=== PATIENT | male | born 1940 | race Caucasian/White ===

== ENCOUNTER 2019-07-14 11:30 | Observation (INO) ==
[2019-07-14] MEDS ORDERED: AMPICILLIN/SULBACTAM 3,000 MG in SODIUM CHLORIDE 0.9% 100 ML IV STA (12:43)
[2019-07-14] MEDS ORDERED: LIDOCAINE 1%/EPI INJ 20 ML VIAL ONE (13:16)
[2019-07-14] MEDS ORDERED: TISSUE ADHESIVE 1 EACH APPLICATOR TOP ONE (13:16)
[2019-07-14] MEDS ORDERED: BUPIVACAINE MPF 0.25% 30 ML VIAL ONE (13:17)
[2019-07-14 13:19] LABS: Basophils % 0.3 % (0.0-0.8); Hematocrit 45.3 VOL% (42.0-52.0); Hemoglobin 15.2 GM/DL (14.0-18.0); Immature Granulocytes % 0.5 %; Immature Granulocytes Absolute 0.06 #; Lymphocytes # 0.5 10*3/uL (1.4-4.0); Lymphocytes % 4.9 % (21.2-54.2); Mean Corpuscular HGB Conc 33.6 GM/DL (32-36); Mean Corpuscular Volume 86.6 FL (87-102); Mean Platelet Volume 9.8 FL (9.6-12.0); Monocytes % 7.4 % (1.7-12.7); Neutrophils % 86.9 % (38.7-73.9); Platelet Count 180 T/CUMM (130-400); Red Blood Count 5.23 MC/CUMM (3.8-5.5); Red Cell Distribution Width 13.2 % (9.3-17.3)
[2019-07-14] MEDS ORDERED: ONDANSETRON 4 MG/2 ML VIAL IV STA (13:23)
[2019-07-14] MEDS ORDERED: HYDROmorphone 2 MG/1 ML VIAL IV STA (13:23)
[2019-07-14] MEDS ORDERED: ONDANSETRON 4 MG/2 ML VIAL ONE ×2 (13:24→15:42)
[2019-07-14 13:26] LABS: INR 1.1; PT Patient Result 11.7 SECS (9.8-11.9); Partial Thromboplastin Time 30.3 SECS (23.9-33.8)
[2019-07-14 15:03] LABS: Lymphocytes 6 % (20-55); Platelet Estimate Normal; Segmented Neutrophils 91 % (50-85); Total Cells Counted 100
[2019-07-14] MEDS ORDERED: MORPHINE 4 MG/1 ML VIAL IV PRN (15:35)
[2019-07-14] MEDS ORDERED: ONDANSETRON 4 MG/2 ML VIAL IV PRN (15:35)
[2019-07-14] MEDS ORDERED: LIDOCAINE 2% 5 ML VIAL ONE (15:41)
[2019-07-14] MEDS ORDERED: SEVOFLURANE 1 UNIT/15 MINUTE INH ONE (15:41)
[2019-07-14] MEDS ORDERED: fentaNYL 100 MCG/2 ML VIAL ONE (15:42)
[2019-07-14] MEDS ORDERED: GLYCOPYRROLATE 0.4 MG/2 ML VIAL ONE (15:42)
[2019-07-14] MEDS ORDERED: ETOMIDATE 40 MG/20 ML VIAL IV ONE (15:42)
[2019-07-14] MEDS ORDERED: ePHEDrine 50 MG/ML AMP ONE (15:42)
[2019-07-14] MEDS ORDERED: NEOSTIGMINE 10 MG/10 ML VIAL ONE (15:43)
[2019-07-14] MEDS ORDERED: SUCCINYLCHOLINE 200 MG/10 ML VIAL ONE (15:43)
[2019-07-14] MEDS ORDERED: ROCURONIUM 100 MG/10 ML VIAL IV ONE (15:43)
[2019-07-14] MEDS ORDERED: PHENYLEPHRINE 1 MG/10 ML SYRINGE IV ONE (15:43)
[2019-07-14] MEDS: DEXTROSE 5% LACTATED RINGERS 1,000 ML IV SCH (15:54)
[2019-07-14] MEDS ORDERED: HYDROmorphone 2 MG/1 ML VIAL ONE (15:59)
[2019-07-14] MEDS: HYDROmorphone 2 MG/1 ML VIAL IV PRN ×4 (16:00→16:35)
[2019-07-14 16:04] LABS: Bilirubin,Total 1.2 MG/DL (0.2-1.0); Total Protein 7.1 G/DL (6.4-8.3)
[2019-07-14] MEDS: cefOXitin 2,000 MG in SYRINGE 1 EACH IV SCH (21:40)
[2019-07-15] MEDS: cefOXitin 2,000 MG in SYRINGE 1 EACH IV SCH ×4 (04:24→21:00)
[2019-07-15] MEDS: DEXTROSE 5% LACTATED RINGERS 1,000 ML IV SCH ×4 (04:25→23:29)
[2019-07-15 07:57] LABS: Basophils % 0.3 % (0.0-0.8); Hemoglobin 13.7 GM/DL (14.0-18.0); Immature Granulocytes % 0.4 %; Immature Granulocytes Absolute 0.04 #; Lymphocytes # 0.7 10*3/uL (1.4-4.0); Lymphocytes % 6.6 % (21.2-54.2); Mean Corpuscular HGB Conc 32.6 GM/DL (32-36); Mean Corpuscular Volume 89.4 FL (87-102); Mean Platelet Volume 10.1 FL (9.6-12.0); Monocytes % 10.6 % (1.7-12.7); Neutrophils % 82.1 % (38.7-73.9); Platelet Count 164 T/CUMM (130-400); Red Cell Distribution Width 13.6 % (9.3-17.3); White Blood Count 10.7 T/CUMM (4-12)
[2019-07-15 08:16] LABS: Bilirubin,Total 2.4 MG/DL (0.2-1.0); Calcium 8.3 MG/DL (8.5-10.1)
[2019-07-15] MEDS: PANTOPRAZOLE 40 MG TABLET PO SCH (09:04)
[2019-07-16] MEDS: cefOXitin 2,000 MG in SYRINGE 1 EACH IV SCH ×2 (03:59→09:28)
[2019-07-16 07:11] LABS: Albumin 2.7 G/DL (3.4-5.0); Bilirubin,Total 1.8 MG/DL (0.2-1.0); Calcium 8.3 MG/DL (8.5-10.1); Osmolality,Calculated 272.2 MOS/KG (273-304); Total Protein 5.9 G/DL (6.4-8.3)
[2019-07-16 08:25] VITALS: BP 153/77
[2019-07-16] MEDS: PANTOPRAZOLE 40 MG TABLET PO SCH (09:24)
[2019-07-16] MEDS: DEXTROSE 5% LACTATED RINGERS 1,000 ML IV SCH (09:31)
== END 2019-07-16 12:40 | disposition home or self-care (01) ==
LOC: N.ED 11:30 → N.EDINP 11:30 → N.3E 13:48
PROVIDERS: ADMIT Surgery; ATTEND Surgery
PROC: LAPCHOL (2019-07-14 13:56)